=== PATIENT | female | born 1965 | race Caucasian/White ===

== ENCOUNTER 2019-03-15 20:33 | Emergency (ER) | payer OTHER ==
[~2019-03-15] VITALS: Ht 167.6 cm; Wt 95.3 kg
[2019-03-15 20:38] VITALS: BP_SYST 160
--- NOTE | 2019-03-15 20:55 | NUR ---
Patient to ER bed 07 to gown for evaluation. Side rails up. Report RECEIVED FROM ROYCE SEARS
--- NOTE | 2019-03-15 21:12 | NUR ---
Patient BIBA for pain to the anterior thigh and right knee s/p injury. Patient reports that she was washing the car when she slipped and did the "splits." Denies any KO. Pain 05/27. No other complaints/injuries per patient or as noted. Will continue to monitor.
--- NOTE | 2019-03-15 21:26 | NUR ---
ER at bedside examining patient.
[2019-03-15] MEDS ORDERED: KETOROLAC TROMETHAMINE 60 MG/2 ML VIAL IM ONE (21:45)
[2019-03-15] MEDS ORDERED: traMADol HCL HCL 50 MG TABLET (ULTRAM) PO ONE (21:45)
[2019-03-15 23:18] VITALS: BP_SYST 142
--- NOTE | 2019-03-15 23:18 | NUR ---
Patient given written and verbal discharge instructions and verbalizes understanding. ER MD discussed with patient the results and treatment provided. Patient in stable condition. ID arm band removed. Rx of Tramadol and ibuprofen given. Patient educated on pain management and to follow up with PMD in 2-3 days. Pain Scale 2/10 Opportunity for questions provided and answered. Medication side effect fact sheet provided.
== END 2019-03-15 23:18 | disposition home or self-care (01) ==
LOC: SED 20:33
DX: S86.911A Strain of unspecified muscle(s) and tendon(s) at lower leg level, right leg, initial encounter (principal); R03.0 Elevated blood-pressure reading, without diagnosis of hypertension; Z96.652 Presence of left artificial knee joint; W01.0XXA Fall on same level from slipping, tripping and stumbling without subsequent striking against object, initial encounter; Y93.89 Activity, other specified; Y92.89 Other specified places as the place of occurrence of the external cause; Y99.8 Other external cause status
CPT/HCPCS: 29505; 73564; 96372; 99283; J1885